=== PATIENT | male | born 1950 | race Caucasian/White ===

== ENCOUNTER 2019-04-11 10:17 | Outpatient (CLI) | payer MEDICARE, SELFPAY ==
[2019-04-11 10:49] LABS: Basophils Absolute Auto 0.1 K/mm3 (0.0-0.1); Eosinophils Absolute Auto 0.7 K/mm3 (0-0.3); Eosinophils Percent Auto 10.7 % (0-4.4); Hematocrit 43.8 % (42.0-52.0); Hemoglobin 14.6 g/dL (14.0-18.0); Immature Granulocyte Absolute 0.01 K/mm3 (0.00-0.031); Immature Granulocyte Percent A 0.2 % (0-0.5); Lymphocytes Absolute Auto 2.16 K/mm3 (0.9-3.2); Lymphocytes Percent Auto 35.4 % (18.3-44.2); Mean Corpuscular HGB Conc 33.3 g/dl (32-36); Mean Corpuscular Hemoglobin 27.7 pg (26-34); Mean Platelet Volume 10.7 fl (7.4-10.4); Monocytes Absolute Auto 0.3 K/mm3 (0.1-0.6); Monocytes Percent Auto 4.8 % (2.6-8.5); Neutrophils Absolute Auto 2.9 K/mm3 (1.3-6.7); Neutrophils Percent Auto 47.9 % (45.5-73.1); Platelet Count Result 240 k/mm3 (150-375); Red Blood Count 5.28 M/mm3 (4.6-6.20); Red Cell Distribution Width 13.8 % (11.5-14.5); White Blood Count 6.1 K/mm3 (4.5-10.0)
[2019-04-11 10:58] LABS: Blood Urea Nitrogen 14 mg/dL (9-20); Calcium 9.3 mg/dL (8.4-10.2); Carbon Dioxide 26 mmol/L (22-30); Chloride 98 mmol/L (98-107); Estimated Glomerular Filt Rate > 60; Glucose 153 mg/dL (75-110); Potassium 3.8 mmol/L (3.4-5.0); Sodium 139 mmol/L (137-145)
[2019-04-11 11:20] LABS: INR 1.1; Prothrombin Time 13.5 Seconds (11.1-14.7)
[2019-04-11 11:21] LABS: Partial Thromboplastin Time 30.2 SECONDS (22.3-36.8)
== END 2019-04-11 10:18 | disposition home or self-care (01) ==
LOC: ANHSURGERY 10:26
PROVIDERS: Visit Provider Urology
DX: N32.9 Bladder disorder, unspecified (principal); E11.9 Type 2 diabetes mellitus without complications
CPT/HCPCS: 36415; 80048; 85025; 85610; 85730; 87086

== ENCOUNTER 2019-04-16 00:21 | Day surgery (SDC) | payer MEDICARE, SELFPAY ==
[2019-04-09 12:23] VITALS: BMI 36.6
[2019-04-16] VITALS (7 sets, daily range): BP systolic 129–188; BP diastolic 53–89; PULSE 62–76; RESP 12–18; TEMP 36.6; O2SAT 94–95; BMI 36.0
--- NOTE | ~2019-04-16 | XR_ITS ---
EXAMINATION: XR retrograde pyelogram LT DATE: 04/16/2019 11:08 INDICATION: Left flank pain and gross hematuria. TECHNIQUE: A total of 60 fluoroscopic images of the abdomen and pelvis were obtained during procedure performed by Dr. Zepeda. Radiologist was not present for the imaging or procedure. The amount of f luoroscopy time used during this procedure was 0.3 minutes. COMPARISON: CT dated 07/04/2018 FINDINGS: Fluoroscopic images demonstrate initial retrograde contrast injection into the left ureter draining t he lower pole of the left kidney. No filling defects or strictures appreciated with no hydronephrosis at the lower pole collecting system. Subsequent images demonstrate injection of a separate left uret er draining the upper pole of the left kidney similarly without filling defects, urothelial irregular ities or hydronephrosis. IMPRESSION: 1. 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 No filling defects or urothelial irregularities appreciated. Correlate with procedure note for further detail. Reviewed, dictated and finalized at location A. [employer] IMPRESSION: 1. 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 No filling defects or urothelial irregularities appreciated. Correlate with pr ocedure note for further detail.
--- NOTE | 2019-04-16 08:23 | PM.IMHP ---
H&P: HPI History of Present Illness Chief complaint: Bladder Lesion Narrative: Vincent Diaz is a 69 year old male with history of transurethral resection of the bladder tumor in July of 2018. It was a 1.5 cm tumor right anterior lateral wall. During surveillance cystoscopy was found irregularity over the left ureteral orifice which encompassed an area of approximately 1 cm. He now presents for cystoscopy with biopsy possible transurethral resection and unroofing of urinary his skin Review of Systems Review of Systems: All systems reviewed & are unremarkable except as noted in HPI and below [facility] Social History Social History Gender identity (if verbalized by the patient): Male Meds Home Medications and Allergies Home Medications Medication Instructions Recorded Confirmed Type amlodipine 5 mg PO DAILY 04/09/19 04/09/19 History atorvastatin 10 mg PO DAILY 04/09/19 04/09/19 History citalopram 20 mg PO DAILY 04/09/19 04/09/19 History finasteride 5 mg PO DAILY 04/09/19 04/09/19 History garlic 1,000 mg PO DAILY 04/09/19 04/09/19 History hydrochlorothiazide 25 mg PO DAILY 04/09/19 04/09/19 History lactobacillus combination no.8 3,000 mmu cells PO DAILY 04/09/19 04/09/19 History [Adult Probiotic] losartan 100 mg PO DAILY 04/09/19 04/09/19 History melatonin 5 mg PO HS 04/09/19 04/09/19 History metformin 500 mg PO DAILY 04/09/19 04/09/19 History omega 3-osh-izv-fish oil [Fish Oil] 1 cap PO DAILY 04/09/19 04/09/19 History omeprazole 40 mg PO DAILY 04/09/19 04/09/19 History ropinirole 2 mg PO HS 04/09/19 04/09/19 History tamsulosin 0.4 mg PO DAILY 04/09/19 04/09/19 History Allergies Allergy/AdvReac Type Severity Reaction Status Date / Time No Known Allergies Allergy Unverified 08/07/18 08:07 Exam Const: General: no acute distress HENMT: General nose exam: Normal nares present Resp: Effort & Inspection: normal respiratory effort Cardio: Rate: regular rate Rhythm: regular rhythm GI: GI Palp: Yes Soft to palpation Skin: General skin exam: normal color Neuro: Speech: normal speech Assessment and Plan Assessment and plan (1) Bladder cancer: Code(s): C67.9 - Malignant neoplasm of bladder, unspecified Status: Acute Assessment and Plan: Plan for cystoscopy with biopsy and fulguration possible transurethral resection bladder tumor as well as a review of ureteral orifice and possible stent placement
--- NOTE | 2019-04-16 09:00 | WPDANESEPPF ---
Anes - Initial Pre Proc Eval Procedure: Operation Date: 04/16/19 10:30 Proposed Procedures p Cystoscopy, Bladder Biopsy, Left Stent Placement - Jerman Zepeda MD s Possible Transurethral Resection Bladder Tumor - Jerman Zepeda MD Date/Time: 04/16/19 09:00 Surgeon: Jerman Zepeda MD Pre Op Diagnosis: Bladder Lesion Patient Data Age: 69 Gender: M Height: 1.83 m Weight: 122.47 kg Allergies Allergy/AdvReac Type Severity Reaction Status Date / Time No Known Allergies Allergy Unverified 08/07/18 08:07 Home Medications Medication Instructions Recorded Confirmed Type amlodipine 5 mg PO DAILY 04/09/19 04/09/19 History atorvastatin 10 mg PO DAILY 04/09/19 04/09/19 History citalopram 20 mg PO DAILY 04/09/19 04/09/19 History finasteride 5 mg PO DAILY 04/09/19 04/09/19 History garlic 1,000 mg PO DAILY 04/09/19 04/09/19 History hydrochlorothiazide 25 mg PO DAILY 04/09/19 04/09/19 History lactobacillus combination no.8 3,000 mmu cells PO DAILY 04/09/19 04/09/19 History [Adult Probiotic] losartan 100 mg PO DAILY 04/09/19 04/09/19 History melatonin 5 mg PO HS 04/09/19 04/09/19 History metformin 500 mg PO DAILY 04/09/19 04/09/19 History omega 5-fvh-qyh-fish oil [Fish Oil] 1 cap PO DAILY 04/09/19 04/09/19 History omeprazole 40 mg PO DAILY 04/09/19 04/09/19 History ropinirole 2 mg PO HS 04/09/19 04/09/19 History tamsulosin 0.4 mg PO DAILY 04/09/19 04/09/19 History Patient hx anesthesia problems: none Family hx anesthesia problems: none PMFSH Past Medical History Medical History (Updated 04/16/19 @ 09:04 by Adi Rios MD) Anxiety Arthritis Bladder cancer BPH (benign prostatic hyperplasia) Diabetes Gastroesophageal reflux disease HTN (hypertension) Hypercholesterolemia Obesity UMU (obstructive sleep apnea) Social History Social History Gender identity (if verbalized by the patient): Male Anes - Eval Final PreProcedure Day of Procedure 04/16/19 09:00 Patient weight: obese Heart: regular rate and rhythm Lungs: clear to auscultation and normal air movement Airway: Mallampati scale class II Neurological: alert and oriented Last oral intake: >/= 8 hours ASA classification: III Emergent: no Anesthetic plan: proceed Anesthesia type and monitoring: general GIVS Informed Consent: The patient's anesthetic plan and its attendant risks and benefits were discussed with the patient/family/POA. Questions were solicited and answers provided to the satisfaction of the patient/family/POA.
[2019-04-16] MEDS: LACTATED RINGERS 1,000 ML 30 ML IV CONT (09:20)
--- NOTE | 2019-04-16 09:46 | SUR.PREOP ---
Bedside glocose check at 0920 Blood Glucose 139
[2019-04-16] MEDS: ceFAZolin 3 GM/D5W 100 ML 100 ML IVPB (10:20)
[2019-04-16] MEDS: LIDOCAINE HCL 2% GEL UROJET 10 ML PKG MUCOUS MEM (10:41)
--- NOTE | 2019-04-16 10:57 | PM.PROC ---
Procedure Note - Detailed Date of procedure: 04/16/19 Pre-op diagnosis: Bladder Lesion Post-op diagnosis: other (Same, complete duplication of left collecting system) Procedure performed: Cystoscopy with transurethral resection of small bladder tumor adjacent to the left ureteral orifice. Left retrograde pyelogram was of duplicated collecting system Description of procedure: Patient was taken to the operative suite and correctly identified. Once general anesthesia was obtained he was placed in the dorsal lithotomy position and prepped and draped usual sterile fashion. Twenty-two Colombian scope was inserted into the bladder in direct vision. There are no urethral strictures. Prostate had some mild lateral lobe hypertrophy. Upon entering the bladder he has a completely duplicated left collecting system with 2 ureteral orifices on the left. He has a single orifice on the right. There is some irregularity of the mucosa just adjacent to the left ureteral orifices. At this point time the urethra was dilated to 26 Colombian using male sounds. A 24 Colombian resectoscope sheath was then inserted into the bladder. The lesion was resected. There was fulguration of the base. We were able to spare the ureteral orifices. At this point time a 22 [place]ian scope was reinserted and a pyelogram was performed of both collecting systems. There was no filling defects. Bladder was drained 2% viscous lidocaine was inserted into the urethra and he was taken recovery room stable condition. He will call for path results in 1 week time Anesthesia: GLMA Surgeon: Jerman Zepeda MD Drains: No Packing: No Pathology: yes Complications: No immediate complications Condition: stable Disposition: PACU
[2019-04-16 11:18] LABS: Glucose Point of Care 139 (65-105)
[2019-04-16 11:20] LABS: Glucose Point of Care 127 (65-105)
== END 2019-04-16 12:33 | disposition home or self-care (01) ==
PROVIDERS: Visit Provider Urology
PROC: 0TBB8ZX Excision of Bladder, Via Natural or Artificial Opening Endoscopic, Diagnostic (ICD-10-PCS; CPT 52204; principal; 2019-04-16 10:30)
DX: D49.4 Neoplasm of unspecified behavior of bladder (principal); Q62.5 Duplication of ureter; I10 Essential (primary) hypertension; E78.00 Pure hypercholesterolemia, unspecified; E11.9 Type 2 diabetes mellitus without complications; N40.0 Benign prostatic hyperplasia without lower urinary tract symptoms; G47.33 Obstructive sleep apnea (adult) (pediatric); K21.9 Gastro-esophageal reflux disease without esophagitis; F41.9 Anxiety disorder, unspecified; M19.90 Unspecified osteoarthritis, unspecified site; Z79.84 Long term (current) use of oral hypoglycemic drugs; E66.9 Obesity, unspecified; Z68.36 Body mass index [BMI] 36.0-36.9, adult
CPT/HCPCS: 52234; 74420; 88305; J0690; J1100; J2250; J2405; J2704; J3010; J7120